=== PATIENT | female | born 1985 | race African-American/Black ===

== ENCOUNTER 2019-01-24 06:20 | Inpatient (IN) | payer OTHER ==
[2019-01-23 12:59] VITALS: BMI 35.5
[2019-01-24] MEDS ORDERED: GENTAMICIN SO4 80 MG/2 ML VIAL ONE (07:11)
[2019-01-24] MEDS ORDERED: BUPIVACAINE HCL/PF 0.5% (5 MG/ML) 30 ML VIAL IJ ONE ×2 (07:11→10:15)
[2019-01-24] MEDS ORDERED: THROMBIN (BOVINE) 5,000 UNIT VIAL TP ONE (07:12)
[2019-01-24] MEDS ORDERED: LIDOCAINE 1%-EPI 1:100,000 30 ML MDV IJ ONE ×2 (07:12→07:30)
[2019-01-24] MEDS ORDERED: DEXMEDETOMIDINE HCL 200 MCG/2 ML IVPB ONE (07:28)
[2019-01-24] MEDS ORDERED: ROCURONIUM BROMIDE 50 MG/5 ML SYRINGE ONE (07:32)
[2019-01-24] MEDS ORDERED: MIDAZOLAM HCL 2 MG/2 ML SINGLE DOSE VIAL ONE (07:32)
[2019-01-24] MEDS ORDERED: fentaNYL CITRATE 250 MCG/5 ML VIAL ONE ×2 (07:32→09:13)
[2019-01-24] MEDS ORDERED: BACITRACIN 15 GM TUBE TOPICAL OINTMENT ONE ×2 (07:36→10:37)
[2019-01-24] MEDS ORDERED: LIDOCAINE HCL 1% EPINEPHRINE 1:200,000 30 ML VIAL (PF) ONE (07:36)
[2019-01-24] MEDS ORDERED: LIDOCAINE HCL 1%, 10 MG/ML (20ML VIAL) ONE (07:38)
--- NOTE | 2019-01-24 07:49 | HP ---
History & Physical Update - History History: No Change - Physical Physical: No Change - Assessment Assessment: No Change - Plan Plan: No Change (no change since preop evaluation with Dr Sinclair on 01/17)
[2019-01-24] MEDS ORDERED: PROPOFOL 20 ML ONE ×3 (08:18)
[2019-01-24] MEDS ORDERED: ceFAZolin SODIUM 1 GM VIAL IVPB ONE (09:10)
[2019-01-24] MEDS ORDERED: VANCOMYCIN 1,000 MG VIAL (RESTRICTED TO ID ONLY) IVPB ONE (09:12)
[2019-01-24] MEDS ORDERED: LIDOCAINE 1%/EPI 1:100000 (50 ML MULTI DOSE VIAL) NR ONE (09:14)
[2019-01-24] MEDS ORDERED: HYDROmorphone HCl 2 MG/ML VIAL ONE (09:20)
[2019-01-24] MEDS ORDERED: KETAMINE HCL 200 MG/20 ML VIAL ONE (09:26)
[2019-01-24] MEDS ORDERED: HYDROGEN PEROXIDE 473 ML PO ONE (09:50)
[2019-01-24] MEDS ORDERED: BACITRACIN 50,000 UNITS VIAL NR ONE (09:50)
[2019-01-24] MEDS ORDERED: GENTAMICIN 80MG PREMIX BAG IVPB ONE (09:50)
[2019-01-24] MEDS ORDERED: BUPIVACAINE LIPOSOME/PF (EXPAREL) 266 MG/20 ML VIAL ONE (10:11)
[2019-01-24] MEDS ORDERED: BUPIVACAINE LIPOSOME/PF (EXPAREL) 266 MG/20 ML VIAL NR ONE (10:15)
[2019-01-24] MEDS ORDERED: NEOSTIGMINE METHYLSULFATE 0.5 MG/1 ML - 10 ML MDV ONE (10:16)
[2019-01-24] MEDS ORDERED: ONDANSETRON 4 MG/2 ML VIAL IVPUSH PRN ×3 (11:02→11:52)
--- NOTE | 2019-01-24 11:17 | OP ---
Operative Note - Note: Operative Date: 01/24/19 Pre-Operative Diagnosis: Chiari Malformation Operation: 1. Cranial tong application. 2. Microdissection. 3. Suboccipital decompression for Chiari malformation with C1 laminectomy. 4. Bilateral soft tissue advancement flaps (50cm2). 5. C1-2 posterior arthodesis. 6. Local autograft Findings: as dictated Post-Operative Diagnosis: Other (Chiari malformation with craniocervical junction instability) Surgeon: Cesar Noel Technology Applications Consultant: Jose Juan Sequeira Anesthesiologist/HELMINTHOLOGY TEACHER: Abdi Hammer Anesthesia: General, Local (exparel/.25%Marcaine 20cc injected at completion of site ) Specimens Removed: bone Estimated Blood Loss (mls): 10 (ml) Drains, Volume Out (mls): 350 (ml clear urine) Fluid Volume Replaced (mls): 1 (L LR) Operative Report Dictated: Yes
[2019-01-24] MEDS ORDERED: HYDROmorphone *PCA* 10MG/50ML DISP.SYRIN ONE (11:27)
[2019-01-24] MEDS ORDERED: HYDROmorphone *PCA* 10MG/50ML DISP.SYRIN PCA ONE (11:45)
[2019-01-24] MEDS ORDERED: HYDROmorphone *PCA* 10MG/50ML DISP.SYRIN PCA SCH (12:00)
--- NOTE | 2019-01-24 12:31 | HP ---
Admitting History and Physical - Admission History Source: Patient, Medical Record Limitations to Obtaining History: No Limitations - Past Medical History ...LMP: 01/20/19 - Past Surgical History Past Surgical History: Yes: None - Smoking History Smoking history: Never smoked - Alcohol/Substance Use Hx Alcohol Use: Yes (socially) <Karen March - Last Filed: 01/24/19 12:27> - Admission History of Present Illness: Pt is a 33 y/o f with no significant past medical history who presented to [facility] to undergo a craniotomy procedure. Pt endorses she began to experience weakness in her left arm as well as a shooting pain down her legs. Pt also endorses experiencing visual changes such as seeing spots., double vision. These symptoms commenced after a trip to [facility] and [facility] this past August. During this time period, pt also states that she has been suffering from a lack of sleep due to extreme discomfort when she is supine; endorses she feels a pressure like pain in her head when she coughs or sneezes. Pt was referred to Dr Noel due to her symptoms and was diagnosed with a Chiari 1 malformation found on MRI. Pt endorses ataxic gait, dizziness, and vision changes. Denies loss of bowel or bladder function, LOC, chest pain, or shortness of breath. PMH- As per HPI SocialHx: Consumes 3-4 drinks every other day. Smokes Marijuana socially. 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 (?), Other (ataxia / dizziness) ...: No - Past Surgical History Past Surgical History: Yes: None - Smoking History Smoking history: Never smoked - Alcohol/Substance Use Hx Alcohol Use: Yes History of Substance Use: reports: Marijuana - Social History Usual Living Arrangement: Yes: With Significant Other ADL: Independent History of Recent Travel: Yes <Bhavya Mejia I - Last Filed: 01/27/19 11:49> Home Medications <Karen March - Last Filed: 01/24/19 12:27> <Bhavya Mejia I - Last Filed: 01/27/19 11:49> - Allergies Allergies/Adverse Reactions: Allergies Allergy/AdvReac Type Severity Reaction Status Date / Time No Known Allergies Allergy Verified 01/24/19 07:07 - Home Medications Home Medications: Ambulatory Orders NK [No Known Home Medication] 01/23/19 Review of Systems - Review of Systems Constitutional: reports: No Symptoms Eyes: reports: No Symptoms HENT: reports: Other (Severe pain in lt roman catholic) Neck: reports: Decreased ROM Cardiovascular: reports: No Symptoms Respiratory: reports: No Symptoms Gastrointestinal: reports: No Symptoms Genitourinary: reports: No Symptoms Breasts: reports: No Symptoms Reported Musculoskeletal: reports: No Symptoms Neurological: reports: Headache Endocrine: reports: No Symptoms Hematology/Lymphatic: reports: No Symptoms Psychiatric: reports: No Symptoms <Karen March - Last Filed: 01/24/19 12:27> - Review of Systems Constitutional: reports: No Symptoms, Other (obesity) Eyes: reports: Double Vision, Floaters, Recent Change in Vision HENT: reports: Other Neck: reports: Decreased ROM Cardiovascular: reports: No Symptoms Respiratory: reports: No Symptoms Gastrointestinal: reports: No Symptoms Genitourinary: reports: No Symptoms Breasts: reports: No Symptoms Reported Musculoskeletal: reports: No Symptoms Integumentary: reports: No Symptoms Neurological: reports: Headache, Numbness, Parasthesia, Weakness Endocrine: reports: No Symptoms Hematology/Lymphatic: reports: No Symptoms Psychiatric: reports: No Symptoms <Bhavya Mejia I - Last Filed: 01/27/19 11:49> Physical Examination Vital Signs: Vital Signs Temperature 97.9 F 01/24/19 07:04 Pulse Rate 64 01/24/19 07:04 Respiratory Rate 20 01/24/19 07:04 Blood Pressure 143/74 01/24/19 07:04 O2 Sat by Pulse Oximetry (%) 100 01/24/19 07:03 <Karen March - Last Filed: 01/24/19 12:27> Vital Signs: Vital Signs Temperature 97.8 F 01/25/19 17:53 Pulse Rate 89 01/25/19 17:53 Respiratory Rate 18 01/25/19 17:53 Blood Pressure 137/59 L 01/25/19 17:53 O2 Sat by Pulse Oximetry (%) 98 01/25/19 15:45 Constitutional: Yes: Well Nourished, No Distress, Anxious, Obese Eyes: Yes: Conjunctiva Clear, EOM Intact HENT: Yes: Atraumatic, Normocephalic Neck: Yes: Supple, Trachea Midline Cardiovascular: Yes: Regular Rate and Rhythm Respiratory: Yes: Regular, CTA Bilaterally Gastrointestinal: Yes: Normal Bowel Sounds, Soft ...Rectal Exam: Yes: Deferred Renal/: Yes: WNL Breast(s): Yes: WNL Musculoskeletal: Yes: WNL Extremities: Yes: WNL Edema: No Peripheral Pulses WNL: Yes Integumentary: Yes: WNL Neurological: Yes: Ataxia, Paresthesia, Pre-Existing Deficit ...Motor Strength: WNL Psychiatric: Yes: WNL Labs: CBC, BMP 01/25/19 07:18 01/25/19 07:18 <Bhavya Mejia I - Last Filed: 01/27/19 11:49> Problem List - Problems (2) Double vision Code(s): H53.2 - DIPLOPIA (3) Obesity Code(s): E66.9 - OBESITY, UNSPECIFIED (4) Arnold-Chiari malformation Code(s): Q07.00 - ARNOLD-CHIARI SYNDROME WITHOUT SPINA BIFIDA OR HYDROCEPHALUS <Bhavya Mejia I - Last Filed: 01/27/19 11:49>
[2019-01-24] MEDS ORDERED: ACETAMINOPHEN 1000 MG/100 ML VIAL (NON FORMULARY) IVPB ONE ×2 (13:00→16:29)
[2019-01-24] MEDS ORDERED: ACETAMINOPHEN INJECTION 100 ML IVPB ONE (13:10)
[2019-01-24] MEDS: LACTATED RINGERS SOLUTION 1,000 ML IV SCH (14:30)
--- NOTE | 2019-01-24 16:04 | CONSULT ---
Consultation: REQUESTING PROVIDER: Dr Noel CONSULT REQUEST: We have been asked to medically evaluate this patient for ( Chiari 1 Malformation s/p Suboccipital craniotomy, c1 laminectomy). HISTORY OF PRESENT ILLNESS: Pt is a 33 y/o f with no significant past medical history who presented to [facility] to undergo a craniotomy procedure. Pt endorses she began to experience weakness in her left arm as well as a shooting pain down her legs. Pt also endorses experiencing visual changes such as seeing spots. These symptoms commenced after a trip to [facility] and [facility] this past August. During this time period, pt also states that she has been suffering from a lack of sleep due to extreme discomfort when she is supine; endorses she feels a pressure like pain in her head when she coughs or sneezes. Pt was referred to Dr Noel due to her symptoms and was diagnosed with a Chiari 1 malformation found on MRI. Pt endorses ataxic gait, dizziness, and vision changes. Denies loss of bowel or bladder function, LOC, chest pain, or shortness of breath. PMH- As per HPI SocialHx: Consumes 3-4 drinks every other day. Smokes Marijuana socially. Denies illicit drug use SurgHx- 2 C-Sections, Foot surgeries, Nerve Blocks lower back, Ear Surgery FH- Mother- HTN, DM, " Strokes" NKDA REVIEW OF SYSTEMS: CONSTITUTIONAL: Absent: fever, chills, diaphoresis, generalized weakness, malaise, loss of appetite, weight change HEENT: Absent: rhinorrhea, nasal congestion, throat pain, throat swelling, difficulty swallowing, mouth swelling, ear pain, eye pain, visual changes CARDIOVASCULAR: Absent: chest pain, syncope, palpitations, irregular heart rate, lightheadedness , peripheral edema RESPIRATORY: Absent: cough, shortness of breath, dyspnea with exertion, orthopnea, wheezing, stridor, hemoptysis GASTROINTESTINAL: Absent: abdominal pain, abdominal distension, nausea, vomiting, diarrhea, constipation, melena, hematochezia GENITOURINARY: Absent: dysuria, frequency, urgency, hesitancy, hematuria, flank pain, genital pain MUSCULOSKELETAL: Absent: myalgia, arthralgia, joint swelling, back pain, neck pain SKIN: Absent: rash, itching, pallor HEMATOLOGIC/IMMUNOLOGIC: Absent: easy bleeding, easy bruising, lymphadenopathy, frequent infections ENDOCRINE: Absent: unexplained weight gain, unexplained weight loss, heat intolerance, cold intolerance NEUROLOGIC: PRESENT headache, focal weakness or paresthesias, dizziness, unsteady gait PSYCHIATRIC: Absent: anxiety, depression, suicidal or homicidal ideation, hallucinations. PHYSICAL EXAMINATION Vital Signs - 24 hr 01/24/19 01/24/19 01/24/19 06:57 07:03 07:04 Temperature 97.9 F 97.9 F Pulse Rate 64 64 Respiratory 20 20 Rate Blood Pressure 143/74 143/74 O2 Sat by Pulse 100 Oximetry (%) 01/24/19 01/24/19 01/24/19 10:55 11:00 11:15 Temperature 97.5 F L Pulse Rate 91 H 94 H 94 H Respiratory 15 18 17 Rate Blood Pressure 121/62 116/58 L 115/60 O2 Sat by Pulse 98 99 99 Oximetry (%) 01/24/19 01/24/19 01/24/19 11:30 11:45 12:00 Temperature Pulse Rate 87 97 H 90 Respiratory 12 15 13 Rate Blood Pressure 112/66 116/63 103/60 O2 Sat by Pulse 99 98 99 Oximetry (%) 01/24/19 01/24/19 01/24/19 12:15 12:30 12:45 Temperature Pulse Rate 92 H 81 86 Respiratory 13 13 12 Rate Blood Pressure 110/58 L 105/41 L 113/44 L O2 Sat by Pulse 98 99 97 Oximetry (%) 01/24/19 01/24/19 01/24/19 13:00 13:15 14:30 Temperature 98.1 F 97.2 F L Pulse Rate 85 85 84 Respiratory 12 15 16 Rate Blood Pressure 111/56 L 112/60 110/60 O2 Sat by Pulse 100 98 98 Oximetry (%) 01/24/19 15:00 Temperature Pulse Rate 89 Respiratory 16 Rate Blood Pressure 125/65 O2 Sat by Pulse Oximetry (%) GENERAL: Moderate Distress HEAD: Surgical dressing occipital region, nonoozing. EYES: EOMI Sclera Clear EARS, NOSE, THROAT: MMM NECK: Supple LUNGS: CTAB HEART: RRR S1S2 ABDOMEN: Soft NDNT No HSM LOWER EXTREMITIES: No CCE NEUROLOGICAL: Strength 5/5 RUE, 2/5 LUE, 5/5 b/l lower extremities. PSYCHIATRIC: Cooperative. Good eye contact. Appropriate mood and affect. Laboratory Results - last 24 hr 01/24/19 01/24/19 01/24/19 06:41 06:41 08:50 Serum , Qual Negative Blood Type B POSITIVE B POSITIVE Antibody Screen Negative Active Medications Generic Name Dose Route Start Last Admin Trade Name Freq PRN Reason Stop Dose Admin Docusate Sodium 100 mg 01/24/19 14:00 Colace - PO TID [facility] Ferrous Sulfate 325 mg 01/25/19 08:00 Feosol - PO DAILY@0800 SANG Folic Acid 1 mg 01/25/19 10:00 Folic Acid - PO DAILY [facility] Heparin Sodium (Porcine) 5,000 unit 01/24/19 22:00 Heparin - SQ Q8H-IV SANG Hydromorphone HCl 10 mg 01/24/19 12:00 Hydromorphone 10 Mg/50 Ml-Ns AIR TOOL OPERATOR 01/25/19 11:[address] [facility] Protocol Cefazolin Sodium 1 gm/ 50 mls @ 100 mls/hr 01/24/19 16:30 Dextrose IVPB 01/25/19 16:[address] [facility] Lactated Ringer's 1,000 mls @ 75 mls/hr 01/24/19 12:00 01/24/19 14:30 Lactated Ringers Solution IV Not Given ASDIR [facility] Ondansetron HCl 4 mg 01/24/19 11:52 Zofran Injection IVPUSH Q4H PRN NAUSEA AND/OR VOMITING Ondansetron HCl 4 mg 01/24/19 11:52 Zofran Injection IVPUSH Q6H PRN NAUSEA AND/OR VOMITING ASSESSMENT/PLAN: Pt is a 33 y/o f with no significant past medical history who presented to [facility] to undergo a craniotomy procedure for a Chiari 1 malformation. #Neuro- Chiari 1 Malformation -s/p Suboccipital craniotomy, c1 lamiectomy -Neurosurgery on board- Dr Noel -Pain control with AIR TOOL OPERATOR -OOB, Incentive [place] -No drain per surgery -May begin Heparin in evening -CBC BMP Mg Phos in AM #FEN -LR@75cc -Monitor Electrolytes -Reg Diet #DVT ppx -HEPSQTID Dispo: We will continue to follow the patient. Thank you for this consultative opportunity. Visit type - Emergency Visit Emergency Visit: No - New Patient This patient is new to me today: Yes Date on this admission: 01/24/19 - Critical Care Critical Care patient: Yes Total Critical Care Time (in minutes): 35 Critical Care Statement: The care of this patient involved high complexity decision making to prevent further life threatening deterioration of the patient 's condition and/or to evaluate & treat vital organ system(s) failure or risk of failure.
[2019-01-24] MEDS ORDERED: CEFAZOLIN 1 GM in DEXTROSE 5%-WATER - 50 ML IVPB SCH (16:30)
[2019-01-24] MEDS: CEFAZOLIN 1 GM/D5W 1 GM/50 ML BAG IVPB SCH (17:13)
[2019-01-24] MEDS ORDERED: MELATONIN 5 MG TABLETS PO ONE ×2 (20:35→21:15)
[2019-01-24] MEDS: HEPARIN NA (PORCINE) 5,000 UNITS/ML 1ML VIAL SQ SCH (21:26)
[2019-01-24] MEDS: DOCUSATE SODIUM 100 MG CAPSULE (FP) PO SCH (21:26)
[2019-01-24] MEDS: CHLORHEXIDINE GLUCONATE 4% CLEANSER FOR DECOLONIZATION TP SCH (22:43)
[2019-01-24] MEDS: MUPIROCIN 2% TOPICAL OINTMENT FOR DECOLONIZATION NS SCH (22:43)
[2019-01-25] MEDS ORDERED: HYDROmorphone HCl 2 MG/ML VIAL IVPUSH ONE ×2 (00:56→01:55)
[2019-01-25] MEDS ORDERED: ACETAMINOPHEN 1000 MG/100 ML VIAL (NON FORMULARY) IVPB ONE (00:57)
[2019-01-25] MEDS ORDERED: ceFAZolin SODIUM 1 GM VIAL ONE (02:07)
[2019-01-25] MEDS ORDERED: DEXTROSE 5%-WATER - 50 ML IVPB ONE (02:07)
[2019-01-25] MEDS: CEFAZOLIN 1 GM in DEXTROSE 5%-WATER - 50 ML IVPB SCH ×2 (02:09→10:00)
[2019-01-25] MEDS: CEFAZOLIN 1 GM/D5W 1 GM/50 ML BAG IVPB SCH (03:02)
[2019-01-25] MEDS: DOCUSATE SODIUM 100 MG CAPSULE (FP) PO SCH ×3 (07:05→22:55)
[2019-01-25] MEDS: HEPARIN NA (PORCINE) 5,000 UNITS/ML 1ML VIAL SQ SCH ×3 (07:05→22:55)
[2019-01-25 07:45] LABS: HEMATOCRIT 33.4 % (32.4-45.2); HEMOGLOBIN 11.1 GM/dL (10.7-15.3); MCH 30.8 pg (25.7-33.7); MCHC 33.2 g/dl (32.0-36.0); MEAN CELL VOLUME 92.9 fl (80-96); PLATELET COUNT 289 K/MM3 (134-434); RBC 3.59 M/mm3 (3.60-5.2); RDW 13.2 % (11.6-15.6); WHITE BLOOD COUNT 16.5 K/mm3 (4.0-10.0)
[2019-01-25 08:07] LABS: INR 1.09 (0.83-1.09); PROTHROMBIN TIME (PATIENT) 12.9 SEC (9.7-13.0)
[2019-01-25 08:09] LABS: ACTIVATED PTT 29.1 SECONDS (25.2-36.5)
[2019-01-25 08:14] LABS: BLOOD UREA NITROGEN 9.6 mg/dL (7-18); CALCIUM 8.3 mg/dL (8.5-10.1); CREATININE 0.9 mg/dL (0.55-1.3); MAGNESIUM 1.9 mg/dL (1.8-2.4); POTASSIUM 3.7 mmol/L (3.5-5.1)
--- NOTE | 2019-01-25 09:51 | PN ---
Teaching Attending Note Name of Resident: Juan Dyson ATTENDING PHYSICIAN STATEMENT I saw and evaluated the patient. I reviewed the resident's note and discussed the case with the resident. I agree with the resident's findings and plan as documented. SUBJECTIVE: Patient seen and examined in the ICU. Awake and alert. Remains on SAFETY AIDE. Reports post-op pain. No CP or SOB. Intake & Output 01/22/19 01/23/19 01/24/19 01/25/19 23:59 23:59 23:59 23:59 Intake Total 2482.5 1025 Output Total 1310 2000 Balance 1172.5 -975 Weight 220 lb Last Vital Signs Temp Pulse Resp BP Pulse Ox 98.2 F 74 12 132/83 100 01/25/19 08:00 01/25/19 08:00 01/25/19 08:00 01/25/19 08:00 01/25/19 09:00 Active Medications Chlorhexidine Gluconate (Hibiclens For Decolonization -) 1 applic TP HS [facility] Last Admin: 01/24/19 22:43 Dose: 1 applic Docusate Sodium (Colace -) 100 mg PO TID [facility] Last Admin: 01/25/19 07:05 Dose: Not Given Ferrous Sulfate (Feosol -) 325 mg PO DAILY@0800 [facility] Folic Acid (Folic Acid -) 1 mg PO DAILY [facility] Heparin Sodium (Porcine) (Heparin -) 5,000 unit SQ TID [facility] Last Admin: 01/25/19 07:05 Dose: Not Given Hydromorphone HCl (Hydromorphone 10 Mg/50 Ml-Ns) 10 mg SAFETY AIDE SAFETY AIDE [facility]; Protocol Stop: 01/25/19 11:59 Last Admin: 01/24/19 22:41 Dose: 10 mg Lactated Ringer's (Lactated Ringers Solution) 1,000 mls @ 75 mls/hr IV ASDIR SANG Last Admin: 01/24/19 14:30 Dose: Not Given Cefazolin Sodium 1 gm/ (Dextrose) 50 mls @ 100 mls/hr IVPB Q8H [facility] Stop: 01/25/19 16:44 Last Admin: 01/25/19 02:09 Dose: 100 mls/hr Mupirocin (Bactroban Ointment (For Decolonization) -) 1 applic NS BID [facility] Stop: 01/29/19 21:59 Last Admin: 01/24/19 22:43 Dose: 1 applic Ondansetron HCl (Zofran Injection) 4 mg IVPUSH Q4H PRN PRN Reason: NAUSEA AND/OR VOMITING Last Admin: 01/24/19 17:14 Dose: 4 mg Ondansetron HCl (Zofran Injection) 4 mg IVPUSH Q6H PRN PRN Reason: NAUSEA AND/OR VOMITING i GENERAL: Awake and alert, uncomfortable due to pain HEAD: Surgical dressing occipital region EYES: EOMI Sclera Clear EARS, NOSE, THROAT: MMM NECK: Supple LUNGS: CTAB HEART: RRR S1S2 ABDOMEN: Soft NDNT No HSM LOWER EXTREMITIES: No CCE NEUROLOGICAL: Strength 5/5 RUE, 2/5 LUE, 5/5 b/l lower extremities. PSYCHIATRIC: Cooperative. Good eye contact. Appropriate mood and affect. Laboratory Results - last 24 hr 01/24/19 01/25/19 01/25/19 08:50 07:18 07:18 WBC 16.5 H RBC 3.59 L Hgb 11.1 Hct 33.4 MCV 92.9 MCH 30.8 MCHC 33.2 RDW 13.2 Plt Count 289 MPV 8.0 PT with INR INR PTT (Actin FS) Sodium 142 Potassium 3.7 Chloride 107 Carbon Dioxide 28 Anion Gap 7 L BUN 9.6 Creatinine 0.9 Est GFR (CKD-EPI)AfAm 98.06 Est GFR (CKD-EPI)NonAf 84.60 Random Glucose 95 Calcium 8.3 L Phosphorus 4.0 Magnesium 1.9 Blood Type B POSITIVE 01/25/19 07:18 WBC RBC Hgb Hct MCV MCH MCHC RDW Plt Count MPV PT with INR 12.90 INR 1.09 PTT (Actin FS) 29.1 Sodium Potassium Chloride Carbon Dioxide Anion Gap BUN Creatinine Est GFR (CKD-EPI)AfAm Est GFR (CKD-EPI)NonAf Random Glucose Calcium Phosphorus Magnesium Blood Type ASSESSMENT/PLAN: POD #1 Suboccipital craniotomy and C1 laminectomy due to a Chiari 1 malformation. PO pains meds VTE prophylaxis O2 as needed Incentive Spirometry PO as tolerated Surgical follow up Dr Hernandez
[2019-01-25] MEDS ORDERED: FOLIC ACID 1 MG TABLET (FP) PO SCH (10:00)
[2019-01-25] MEDS: MUPIROCIN 2% TOPICAL OINTMENT FOR DECOLONIZATION NS SCH ×2 (10:05→23:32)
[2019-01-25] MEDS: FERROUS SO4 325 MG TABLET (FP) PO SCH (10:05)
--- NOTE | 2019-01-25 10:54 | CONSULT ---
Consultation: REQUESTING PROVIDER: CONSULT REQUEST: We have been asked to medically evaluate this patient for ( specify). HISTORY OF PRESENT ILLNESS: REVIEW OF SYSTEMS: CONSTITUTIONAL: Absent: fever, chills, diaphoresis, generalized weakness, malaise, loss of appetite, weight change HEENT: Absent: rhinorrhea, nasal congestion, throat pain, throat swelling, difficulty swallowing, mouth swelling, ear pain, eye pain, visual changes CARDIOVASCULAR: Absent: chest pain, syncope, palpitations, irregular heart rate, lightheadedness , peripheral edema RESPIRATORY: Absent: cough, shortness of breath, dyspnea with exertion, orthopnea, wheezing, stridor, hemoptysis GASTROINTESTINAL: Absent: abdominal pain, abdominal distension, nausea, vomiting, diarrhea, constipation, melena, hematochezia GENITOURINARY: Absent: dysuria, frequency, urgency, hesitancy, hematuria, flank pain, genital pain MUSCULOSKELETAL: Absent: myalgia, arthralgia, joint swelling, back pain, neck pain SKIN: Absent: rash, itching, pallor HEMATOLOGIC/IMMUNOLOGIC: Absent: easy bleeding, easy bruising, lymphadenopathy, frequent infections ENDOCRINE: Absent: unexplained weight gain, unexplained weight loss, heat intolerance, cold intolerance NEUROLOGIC: Absent: headache, focal weakness or paresthesias, dizziness, unsteady gait, seizure, mental status changes, bladder or bowel incontinence PSYCHIATRIC: Absent: anxiety, depression, suicidal or homicidal ideation, hallucinations. PHYSICAL EXAMINATION Vital Signs - 24 hr 01/24/19 01/24/19 01/24/19 10:55 11:00 11:15 Temperature 97.5 F L Pulse Rate 91 H 94 H 94 H Respiratory 15 18 17 Rate Blood Pressure 121/62 116/58 L 115/60 O2 Sat by Pulse 98 99 99 Oximetry (%) 01/24/19 01/24/19 01/24/19 11:30 11:45 12:00 Temperature Pulse Rate 87 97 H 90 Respiratory 12 15 13 Rate Blood Pressure 112/66 116/63 103/60 O2 Sat by Pulse 99 98 99 Oximetry (%) 01/24/19 01/24/19 01/24/19 12:15 12:30 12:45 Temperature Pulse Rate 92 H 81 86 Respiratory 13 13 12 Rate Blood Pressure 110/58 L 105/41 L 113/44 L O2 Sat by Pulse 98 99 97 Oximetry (%) 01/24/19 01/24/1919 13:00 13:15 14:30 Temperature 98.1 F 97.2 F L Pulse Rate 85 85 90 Respiratory 12 14 17 Rate Blood Pressure 111/56 L 112/60 110/60 O2 Sat by Pulse 100 98 100 Oximetry (%) 01/24/19 01/24/19 01/24/19 15:00 15:45 16:00 Temperature Pulse Rate 89 89 87 Respiratory 16 15 14 Rate Blood Pressure 125/65 128/60 113/61 O2 Sat by Pulse 100 Oximetry (%) 01/24/19 01/24/19 01/24/19 18:00 20:00 21:00 Temperature 97.4 F L 97.8 F Pulse Rate 78 76 Respiratory 17 14 19 Rate Blood Pressure 133/75 129/72 O2 Sat by Pulse 100 100 Oximetry (%) 01/24/19 01/24/19 01/24/19 22:00 22:41 23:11 Temperature Pulse Rate 83 79 79 Respiratory 11 19 84 H Rate Blood Pressure 158/66 158/66 158/66 O2 Sat by Pulse 100 100 Oximetry (%) 01/25/19 01/25/19 01/25/19 00:00 00:41 02:00 Temperature 97.7 F Pulse Rate 71 67 82 Respiratory 12 10 16 Rate Blood Pressure 142/70 142/70 128/71 O2 Sat by Pulse 100 Oximetry (%) 01/25/19 01/25/19 01/25/19 02:41 03:45 04:00 Temperature Pulse Rate 83 68 83 Respiratory 15 11 18 Rate Blood Pressure 133/99 124/62 124/62 O2 Sat by Pulse 96 96 Oximetry (%) 01/25/19 01/25/19 01/25/19 04:41 06:00 06:41 Temperature 97.8 F Pulse Rate 68 80 76 Respiratory 11 17 15 Rate Blood Pressure 124/62 120/64 120/64 O2 Sat by Pulse 96 97 Oximetry (%) 01/25/19 01/25/19 01/25/19 07:45 08:00 09:00 Temperature 98.2 F Pulse Rate 74 74 Respiratory 12 12 Rate Blood Pressure 124/70 132/83 O2 Sat by Pulse 100 100 Oximetry (%) 01/25/19 10:00 Temperature 98.0 F Pulse Rate Respiratory Rate Blood Pressure 118/63 O2 Sat by Pulse Oximetry (%) GENERAL: Awake, alert, and fully oriented, in no acute distress. HEAD: Normal with no signs of trauma. EYES: Pupils equal, round and reactive to light, extraocular movements intact, sclera anicteric, conjunctiva clear. No lid lag. EARS, NOSE, THROAT: Ears normal, nares patent, oropharynx clear without exudates. Moist mucous membranes. NECK: Normal range of motion, supple without lymphadenopathy, JVD, or masses. LUNGS: Breath sounds equal, clear to auscultation bilaterally. No wheezes, and no crackles. No accessory muscle use. HEART: Regular rate and rhythm, normal S1 and S2 without murmur, rub or gallop. ABDOMEN: Soft, nontender, not distended, normoactive bowel sounds, no guarding, no rebound, no masses. No hepatomegaly or splenomegaly. MUSCULOSKELETAL: Normal range of motion at all joints. No bony deformities or tenderness. No CVA tenderness. UPPER EXTREMITIES: 2+ pulses, warm, well-perfused. No cyanosis. No clubbing. Cap refill <2 seconds. No peripheral edema. LOWER EXTREMITIES: 2+ pulses, warm, well-perfused. No calf tenderness. No peripheral edema. NEUROLOGICAL: Cranial nerves II-XII intact. Normal speech. Normal gait. PSYCHIATRIC: Cooperative. Good eye contact. Appropriate mood and affect. SKIN: Warm, dry, normal turgor, no rashes or lesions noted. Laboratory Results - last 24 hr 01/25/19 01/25/19 01/25/19 07:18 07:18 07:18 WBC 16.5 H RBC 3.59 L Hgb 11.1 Hct 33.4 MCV 92.9 MCH 30.8 MCHC 33.2 RDW 13.2 Plt Count 289 MPV 8.0 PT with INR 12.90 INR 1.09 PTT (Actin FS) 29.1 Sodium 142 Potassium 3.7 Chloride 107 Carbon Dioxide 28 Anion Gap 7 L BUN 9.6 Creatinine 0.9 Est GFR (CKD-EPI)AfAm 98.06 Est GFR (CKD-EPI)NonAf 84.60 Random Glucose 95 Calcium 8.3 L Phosphorus 4.0 Magnesium 1.9 Active Medications Generic Name Dose Route Start Last Admin Trade Name Freq PRN Reason Stop Dose Admin Chlorhexidine Gluconate 1 applic 01/24/19 22:00 01/24/19 22:43 Hibiclens For Decolonization - TP 1 applic HS SANG Administration Docusate Sodium 100 mg 01/24/19 14:00 01/25/19 07:05 Colace - PO Not Given TID SANG Ferrous Sulfate 325 mg 01/25/19 08:00 01/25/19 10:05 Feosol - PO 325 mg DAILY@0800 SANG Administration Folic Acid 1 mg 01/25/19 10:00 01/25/19 10:05 Folic Acid - PO 1 mg DAILY SANG Administration Heparin Sodium (Porcine) 5,000 unit 01/24/19 22:00 01/25/19 07:05 Heparin - SQ Not Given TID SANG Hydromorphone HCl 10 mg 01/24/19 12:00 01/24/19 22:41 Hydromorphone 10 Mg/50 Ml-Ns SIEBEL ARCHITECT 01/25/19 11:59 10 mg SIEBEL ARCHITECT SANG Administration Protocol Lactated Ringer's 1,000 mls @ 75 mls/hr 01/24/19 12:00 01/24/19 14:30 Lactated Ringers Solution IV Not Given ASDIR SANG Cefazolin Sodium 1 gm/ 50 mls @ 100 mls/hr 01/25/19 01:15 01/25/19 02:09 Dextrose IVPB 01/25/19 16:44 100 mls/hr Q8H SANG Administration Mupirocin 1 applic 01/24/19 22:00 01/25/19 10:05 Bactroban Ointment (For Decolonization) - NS 01/29/19 21:59 1 applic BID SANG Administration Ondansetron HCl 4 mg 01/24/19 11:52 01/24/19 17:14 Zofran Injection IVPUSH 4 mg Q4H PRN Administration NAUSEA AND/OR VOMITING Ondansetron HCl 4 mg 01/24/19 11:52 Zofran Injection IVPUSH Q6H PRN NAUSEA AND/OR VOMITING CBC, BMP 01/25/19 07:18 01/25/19 07:18 ASSESSMENT/PLAN: Dispo: We will continue to follow the patient. Thank you for this consultative opportunity. ATTENDING PHYSICIAN STATEMENT I saw and evaluated the patient. I reviewed the resident's note and discussed the case with the resident. I agree with the resident's findings and plan as documented. SUBJECTIVE: OBJECTIVE: ASSESSMENT AND PLAN:
--- NOTE | 2019-01-25 11:13 | PN ---
Physical Exam: SUBJECTIVE: Patient seen and examined at bed side POD#1 for Chiari 1 Malformation s/p Suboccipital craniotomy, c1 laminectomy on ANTIQUE AUTOMOBILES REPAIRER has iching this am and was giving Benadryl , keep asking for pain meds. vutals stable and no cp, sob complain of some pain in surgical area different that one before surgery. asking for vegi diet OBJECTIVE: Vital Signs Period Temp Pulse Resp BP Sys/Hassan Pulse Ox Last 24 Hr 97.2 F-98.2 F 67-97 10-84 103-158/41-99 96-100 GENERAL: AAOx3 in NAD , collar neck in place EYES: EOMI, Conjunctiva clear, sclera anicteric ENT: moist mucous membrane NECK: Supple, no JVD, collar neck in place LUNGS: CTA B/L, no crackles no wheezing no accessory muscle use. HEART: RRR, NSR, normal s1, s2, murmur no M/R/G ABDOMEN: Soft, ND, NT, +BS 4 Q, no CVA Tenderness LOWER EXTREMITIES: no edema, +2DP pulse, NEUROLOGICAL: No focal deficit. Normal speech. gait not observed. SKIN: Warm, dry, Laboratory Results - last 24 hr 01/25/19 01/25/19 01/25/19 07:18 07:18 07:18 WBC 16.5 H RBC 3.59 L Hgb 11.1 Hct 33.4 MCV 92.9 MCH 30.8 MCHC 33.2 RDW 13.2 Plt Count 289 MPV 8.0 PT with INR 12.90 INR 1.09 PTT (Actin FS) 29.1 Sodium 142 Potassium 3.7 Chloride 107 Carbon Dioxide 28 Anion Gap 7 L BUN 9.6 Creatinine 0.9 Est GFR (CKD-EPI)AfAm 98.06 Est GFR (CKD-EPI)NonAf 84.60 Random Glucose 95 Calcium 8.3 L Phosphorus 4.0 Magnesium 1.9 Active Medications Generic Name Dose Route Start Last Admin Trade Name Freq PRN Reason Stop Dose Admin Chlorhexidine Gluconate 1 applic 01/24/19 22:00 01/24/19 22:43 Hibiclens For Decolonization - TP 1 applic HS SANG Administration Docusate Sodium 100 mg 01/24/19 14:00 01/25/19 07:05 Colace - PO Not Given TID SANG Ferrous Sulfate 325 mg 01/25/19 08:00 01/25/19 10:05 Feosol - PO 325 mg DAILY@0800 SANG Administration Folic Acid 1 mg 01/25/19 10:00 01/25/19 10:05 Folic Acid - PO 1 mg DAILY SANG Administration Heparin Sodium (Porcine) 5,000 unit 01/24/19 22:00 01/25/19 07:05 Heparin - SQ Not Given TID SANG Hydromorphone HCl 10 mg 01/24/19 12:00 01/24/19 22:41 Hydromorphone 10 Mg/50 Ml-Ns ANTIQUE AUTOMOBILES REPAIRER 01/25/19 11:59 10 mg ANTIQUE AUTOMOBILES REPAIRER SANG Administration Protocol Lactated Ringer's 1,000 mls @ 75 mls/hr 01/24/19 12:00 01/24/19 14:30 Lactated Ringers Solution IV Not Given ASDIR SANG Cefazolin Sodium 1 gm/ 50 mls @ 100 mls/hr 01/25/19 01:15 01/25/19 02:09 Dextrose IVPB 01/25/19 16:44 100 mls/hr Q8H SANG Administration Mupirocin 1 applic 01/24/19 22:00 01/25/19 10:05 Bactroban Ointment (For Decolonization) - NS 01/29/19 21:59 1 applic BID SANG Administration Ondansetron HCl 4 mg 01/24/19 11:52 01/24/19 17:14 Zofran Injection IVPUSH 4 mg Q4H PRN Administration NAUSEA AND/OR VOMITING Ondansetron HCl 4 mg 01/24/19 11:52 Zofran Injection IVPUSH Q6H PRN NAUSEA AND/OR VOMITING CBC, BMP 01/25/19 07:18 01/25/19 07:18 ASSESSMENT/PLAN: Pt is a 33 y/o f with no significant past medical history who presented to [facility] to undergo a craniotomy procedure for a Chiari 1 malformation. #Neuro- Chiari 1 Malformation -s/p Suboccipital craniotomy, c1 lamiectomy -Neurosurgery on board- Dr Noel -Pain control with ANTIQUE AUTOMOBILES REPAIRER, will reach out to surgery for PO pain meds -OOB, Incentive Hkanh -No drain per surgery - Heparin SQ for DVTS proph -CBC BMP Mg Phos in AM - laxatives miralax and colace #FEN -LR@75cc -Monitor Electrolytes -Vegi Diet #DVT ppx -HEPSQTID can be monitored on the floor Visit type - Emergency Visit Emergency Visit: Yes ED Registration Date: 01/24/19 Care time: The patient presented to the Emergency Department on the above date and was hospitalized for further evaluation of their emergent condition. - New Patient This patient is new to me today: Yes Date on this admission: 01/25/19 - Critical Care Critical Care patient: Yes Total Critical Care Time (in minutes): 45 Critical Care Statement: The care of this patient involved high complexity decision making to prevent further life threatening deterioration of the patient 's condition and/or to evaluate & treat vital organ system(s) failure or risk of failure. ATTENDING PHYSICIAN STATEMENT I saw and evaluated the patient. I reviewed the resident's note and discussed the case with the resident. I agree with the resident's findings and plan as documented. SUBJECTIVE: OBJECTIVE: ASSESSMENT AND PLAN:
[2019-01-25] MEDS: diazePAM 5 MG TABLET PO PRN ×2 (15:55→22:55)
[2019-01-25] MEDS: oxyCODONE HCL 10 MG SUSTAINED ACTING TABLET PO PRN ×2 (15:55→19:14)
[2019-01-25] MEDS: LACTATED RINGERS SOLUTION 1,000 ML IV SCH (15:56)
--- NOTE | 2019-01-25 16:32 | PN ---
Progress Note (short form) - Note Progress Note: Anesthesia Post Op note Pt s/p GA for Chiari malformation repair Pt awake alert, Denies n/v, no urinary retention, no puritis Reports poor pain control on SALES REPRESENTATIVE RURAL POWER SALES REPRESENTATIVE RURAL POWER discontinued - d/w Dr. Noel VSS no apparent anesthesia complications Ashkan Chaney.
--- NOTE | 2019-01-25 19:20 | PN ---
Progress Note (short form) - Note Progress Note: patient seen and examined in ICU MAGNETO REPAIRER d/c'd more comfortable today but pain mamagement still uncontrolled partner at bedside Vital Signs Period Temp Pulse Resp BP Sys/Hassan Pulse Ox Last 24 Hr 97.7 F-98.2 F 67-89 10-99 118-158/59-99 96-100 Awake / alert O X3 firm neck brace in place lungs clear and and laterally abd soft non tender ext no calf tenderness Active Medications Acetaminophen (Ofirmev Injection -) 1,000 mg IVPB Q6H PRN PRN Reason: PAIN LEVEL 1-5 Chlorhexidine Gluconate (Hibiclens For Decolonization -) 1 applic TP HS [facility] Last Admin: 01/24/19 22:43 Dose: 1 applic Diazepam (Valium -) 5 mg PO Q6H PRN PRN Reason: PAIN LEVEL 1-5 Last Admin: 01/25/19 15:55 Dose: 5 mg Docusate Sodium (Colace -) 100 mg PO TID [facility] Last Admin: 01/25/19 15:23 Dose: 100 mg Ferrous Sulfate (Feosol -) 325 mg PO DAILY@0800 [facility] Last Admin: 01/25/19 10:05 Dose: 325 mg Folic Acid (Folic Acid -) 1 mg PO DAILY [facility] Last Admin: 01/25/19 10:05 Dose: 1 mg Heparin Sodium (Porcine) (Heparin -) 5,000 unit SQ TID [facility] Last Admin: 01/25/19 15:23 Dose: 5,000 unit Lactated Ringer's (Lactated Ringers Solution) 1,000 mls @ 75 mls/hr IV ASDIR [facility] Last Admin: 01/25/19 15:56 Dose: Not Given Ketorolac Tromethamine (Toradol Injection -) 30 mg IVPUSH Q8H-IV PRN PRN Reason: PAIN LEVEL 1-5 Stop: 01/30/19 14:59 Mupirocin (Bactroban Ointment (For Decolonization) -) 1 applic NS BID [facility] Stop: 01/29/19 21:59 Last Admin: 01/25/19 10:05 Dose: 1 applic Ondansetron HCl (Zofran Injection) 4 mg IVPUSH Q4H PRN PRN Reason: NAUSEA AND/OR VOMITING Last Admin: 01/24/19 17:14 Dose: 4 mg Ondansetron HCl (Zofran Injection) 4 mg IVPUSH Q6H PRN PRN Reason: NAUSEA AND/OR VOMITING Oxycodone HCl (Oxycontin -) 10 mg PO BID PRN PRN Reason: PAIN LEVEL 4 - 6 Last Admin: 01/25/19 19:14 Dose: 10 mg ASSESSMENT/PLAN: Pt is a 33 y/o f with no significant past medical history who presented to [facility] to undergo a craniotomy procedure for a Chiari 1 malformation. 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
[2019-01-25] MEDS: ACETAMINOPHEN 1000 MG/100 ML VIAL (NON FORMULARY) IVPB PRN (19:34)
[2019-01-25] MEDS: KETOROLAC TROMETHAMINE 30 MG/1 ML VIAL IVPUSH PRN (20:39)
[2019-01-25] MEDS: CHLORHEXIDINE GLUCONATE 4% CLEANSER FOR DECOLONIZATION TP SCH (23:33)
[2019-01-25] MEDS ORDERED: oxyCODONE HCL 5 MG TABLET PO PRN (23:52)
[2019-01-26] MEDS: oxyCODONE HCL 5 MG TABLET PO PRN ×4 (00:05→19:37)
[2019-01-26] MEDS: KETOROLAC TROMETHAMINE 30 MG/1 ML VIAL IVPUSH PRN ×2 (04:31→12:24)
[2019-01-26] MEDS: diazePAM 5 MG TABLET PO PRN ×4 (04:31→22:45)
[2019-01-26] MEDS: DOCUSATE SODIUM 100 MG CAPSULE (FP) PO SCH ×3 (07:02→21:00)
[2019-01-26] MEDS: HEPARIN NA (PORCINE) 5,000 UNITS/ML 1ML VIAL SQ SCH ×3 (07:02→21:04)
[2019-01-26] MEDS ORDERED: ONDANSETRON 4 MG/2 ML VIAL IVPUSH PRN (08:04)
[2019-01-26 08:09] LABS: BASO % 0.4 % (0-2.0); HEMATOCRIT 35.1 % (32.4-45.2); HEMOGLOBIN 11.6 GM/dL (10.7-15.3); LYMPH % 23.9 % (8-40); MCH 30.7 pg (25.7-33.7); MEAN CELL VOLUME 92.8 fl (80-96); MEAN PLT VOLUME 8.3 fl (7.5-11.1); MONO % 10.4 % (3.8-10.2); NEUT % 65.3 % (42.8-82.8); PLATELET COUNT 280 K/MM3 (134-434); RBC 3.78 M/mm3 (3.60-5.2); RDW 13.2 % (11.6-15.6); WHITE BLOOD COUNT 12.3 K/mm3 (4.0-10.0)
[2019-01-26 08:40] LABS: ALBUMIN 3.4 g/dl (3.4-5.0); BILIRUBIN,TOTAL 0.6 mg/dL (0.2-1); BLOOD UREA NITROGEN 6.2 mg/dL (7-18); CREATININE 0.9 mg/dL (0.55-1.3); TOT PROT 7.7 g/dl (6.4-8.2)
[2019-01-26] MEDS: ACETAMINOPHEN 1000 MG/100 ML VIAL (NON FORMULARY) IVPB PRN ×3 (09:01→23:01)
[2019-01-26] MEDS: oxyCODONE HCL 10 MG SUSTAINED ACTING TABLET PO PRN (09:02)
[2019-01-26] MEDS: oxyCODONE HCL 10 MG SUSTAINED ACTING TABLET PO SCH ×2 (11:15→21:00)
[2019-01-26] MEDS: FOLIC ACID 1 MG TABLET (FP) PO SCH (11:20)
[2019-01-26] MEDS: LACTATED RINGERS SOLUTION 1,000 ML IV SCH (11:39)
[2019-01-26] MEDS: FERROUS SO4 325 MG TABLET (FP) PO SCH (11:41)
--- NOTE | 2019-01-26 18:45 | PN ---
Progress Note (short form) - Note Progress Note: patient seen and examined on Med-surg dan feeling better but remains with significant discomfort although looks like she is able to move around better Vital Signs Period Temp Pulse Resp BP Sys/Hassan Pulse Ox Last 24 Hr 97.8 F-98.2 F 64-84 16-20 132-159/73-103 99 Awake / alert O X3 firm neck brace in place lungs clear abd soft non tender ext no calf tenderness Active Medications Acetaminophen (Ofirmev Injection -) 1,000 mg IVPB Q6H PRN PRN Reason: PAIN LEVEL 1-5 Last Admin: 01/26/19 16:42 Dose: 1,000 mg Diazepam (Valium -) 5 mg PO Q6H PRN PRN Reason: PAIN LEVEL 1-5 Last Admin: 01/26/19 17:32 Dose: 5 mg Docusate Sodium (Colace -) 100 mg PO TID [facility] Last Admin: 01/26/19 13:32 Dose: 100 mg Ferrous Sulfate (Feosol -) 325 mg PO DAILY@0800 [facility] Folic Acid (Folic Acid -) 1 mg PO DAILY [facility] Last Admin: 01/26/19 11:20 Dose: 1 mg Heparin Sodium (Porcine) (Heparin -) 5,000 unit SQ TID [facility] Last Admin: 01/26/19 13:37 Dose: Not Given Lactated Ringer's (Lactated Ringers Solution) 1,000 mls @ 75 mls/hr IV ASDIR [facility] Last Admin: 01/26/19 11:39 Dose: Not Given Ketorolac Tromethamine (Toradol Injection -) 30 mg IVPUSH Q8H-IV PRN PRN Reason: PAIN LEVEL 1-5 Stop: 01/30/19 14:59 Last Admin: 01/26/19 12:24 Dose: 30 mg Ondansetron HCl (Zofran Injection) 4 mg IVPUSH Q4H PRN PRN Reason: NAUSEA AND/OR VOMITING Ondansetron HCl (Zofran Injection) 4 mg IVPUSH Q6H PRN PRN Reason: NAUSEA AND/OR VOMITING Oxycodone HCl (Roxicodone -) 5 mg PO Q6H PRN PRN Reason: PAIN LEVEL 1-5 Oxycodone HCl (Roxicodone -) 10 mg PO Q6H PRN PRN Reason: PAIN LEVEL 6-10 Last Admin: 01/26/19 13:31 Dose: 10 mg Oxycodone HCl (Oxycontin -) 10 mg PO BID@0900,2100 [facility] Last Admin: 01/26/19 11:15 Dose: Not Given ASSESSMENT/PLAN: Pt is a 33 y/o f with no significant past medical history who presented to [facility] to undergo a craniotomy procedure for a Chiari 1 malformation. #Neuro- Chiari 1 Malformation -s/p Suboccipital craniotomy, c1 lamiectomy -Pain control with SUPERVISOR SEWING ROOM now discontinued --on PO pain meds -c/o neck spasm -- will inc valium at hs to 10mg -OOB, BRP, -Incentive Spirometry # Constipation - laxatives miralax and colace Problem List - Problems (3) Double vision Code(s): H53.2 - DIPLOPIA (4) Obesity Code(s): E66.9 - OBESITY, UNSPECIFIED (5) Arnold-Chiari malformation Code(s): Q07.00 - ARNOLD-CHIARI SYNDROME WITHOUT SPINA BIFIDA OR HYDROCEPHALUS
[2019-01-26] MEDS ORDERED: PT OWN MED DRAWER 7, Y5N ONE (20:53)
[2019-01-26] MEDS: POLYETHYLENE GLYCOL 3350 119 GM BTL PO SCH (21:01)
[2019-01-27] MEDS: ONDANSETRON 4 MG/2 ML VIAL IVPUSH PRN ×2 (00:32→09:25)
[2019-01-27] MEDS: KETOROLAC TROMETHAMINE 30 MG/1 ML VIAL IVPUSH PRN ×2 (01:50→09:25)
[2019-01-27] MEDS: oxyCODONE HCL 5 MG TABLET PO PRN ×2 (03:33→12:00)
[2019-01-27] MEDS: DOCUSATE SODIUM 100 MG CAPSULE (FP) PO SCH ×3 (05:51→21:59)
[2019-01-27] MEDS: diazePAM 5 MG TABLET PO PRN ×2 (05:51→12:00)
[2019-01-27] MEDS: HEPARIN NA (PORCINE) 5,000 UNITS/ML 1ML VIAL SQ SCH ×3 (05:52→21:58)
--- NOTE | 2019-01-27 08:11 | PN ---
Progress Note (short form) - Note Progress Note: POD #3 Suboccipital craniotomy, c1 laminectomy. Patient seen and examined at bedside states pain is improved and mostly controlled on PO meds but she is still having lots of pain during sleeping hours at night. She also states that she gets a headache at times associated with the pain. She is ambulating without assistance, voiding and tolerating a regular diet. She denies any CP, SOB, nausea, fever or chills. Vital Signs Temp 97.2 F L 01/27/19 14:00 Pulse 99 H 01/27/19 14:00 Resp 18 01/27/19 14:00 BP 114/85 01/27/19 14:00 Pulse Ox 99 01/26/19 21:00 Intake & Output 01/26/19 01/27/19 01/27/19 23:59 11:59 23:59 Intake Total 1550 300 Balance 1550 300 Intake: IV 750 Lactated Ringers Solution 750 1,000 ml @ 75 mls/hr IV ASDIR SANG Rx#:[id number] IVPB 200 100 Oral 600 200 Other: Voiding Method Toilet Toilet # Unmeasured Voids Carrillo 2 Void 4 3 Bowel Movement No No No CBC, BMP 01/26/19 07:20 01/26/19 07:20 PE: A&Ox3, NAD Unlabored resp on RA Incision c/d/i with no evidence of tracking erythema, edema or active d/c. moving all extremities without limitation B/L LE compartments soft, supple and non-tender with + pedal pulses Problem List - Problems (1) Arnold-Chiari malformation, type I Assessment/Plan: Patient doing well. I spoke with Dr Mejia and we will adjust PO meds and refer to Dr Scherer to follow up as outpatient. -Oxycodone 20mg QID -Valium 10mg Q6h -OOB as tolerated with c-collar -d/c planning for home today -f/u with Dr Scherer as outpatient. Evaluation and plan discussed with Dr Cross and Dr Moore
[2019-01-27] MEDS: oxyCODONE HCL 10 MG SUSTAINED ACTING TABLET PO SCH (09:08)
[2019-01-27] MEDS: FOLIC ACID 1 MG TABLET (FP) PO SCH (09:08)
[2019-01-27] MEDS: FERROUS SO4 325 MG TABLET (FP) PO SCH (09:08)
[2019-01-27] MEDS: LACTATED RINGERS SOLUTION 1,000 ML IV SCH (11:54)
[2019-01-27] MEDS: POLYETHYLENE GLYCOL 3350 119 GM BTL PO SCH ×2 (12:07→21:59)
[2019-01-27] MEDS ORDERED: PT OWN MED DRAWER 7, Y5N ONE (16:40)
[2019-01-27] MEDS: oxyCODONE HCL 5 MG TABLET PO SCH ×2 (18:11→23:02)
[2019-01-27] MEDS: ACETAMINOPHEN 325 MG TABLET (FP) PO SCH ×2 (18:16→22:00)
--- NOTE | 2019-01-27 18:19 | PN ---
Progress Note (short form) - Note Progress Note: patient seen and examined med/surgicalward LUMBER CHECKER d/c'd more comfortable today but pain mamagement still uncontrolled partner at bedside Vital Signs Period Temp Pulse Resp BP Sys/Hassan Pulse Ox Last 24 Hr 97.7 F-98.2 F 67-89 10-99 118-158/59-99 96-100 Awake / alert O X3 firm neck brace in place lungs clear and and laterally abd soft non tender ext no calf tenderness CBC, BMP 01/26/19 07:20 01/26/19 07:20 Active Medications Acetaminophen (Ofirmev Injection -) 1,000 mg IVPB Q6H PRN PRN Reason: PAIN LEVEL 1-5 Chlorhexidine Gluconate (Hibiclens For Decolonization -) 1 applic TP HS [facility] Last Admin: 01/24/19 22:43 Dose: 1 applic Diazepam (Valium -) 5 mg PO Q6H PRN PRN Reason: PAIN LEVEL 1-5 Last Admin: 01/25/19 15:55 Dose: 5 mg Docusate Sodium (Colace -) 100 mg PO TID [facility] [place] Last Admin: 01/25/19 15:23 Dose: 100 mg Ferrous Sulfate (Feosol -) 325 mg PO DAILY@0800 [facility] [place] Last Admin: 01/25/19 10:05 Dose: 325 mg Folic Acid (Folic Acid -) 1 mg PO DAILY [facility] [place] Last Admin: 01/25/19 10:05 Dose: 1 mg Heparin Sodium (Porcine) (Heparin -) 5,000 unit SQ TID [facility] [place] Last Admin: 01/25/19 15:23 Dose: 5,000 unit Lactated Ringer's (Lactated Ringers Solution) 1,000 mls @ 75 mls/hr IV ASDIR [facility] [place] Last Admin: 01/25/19 15:56 Dose: Not Given Ketorolac Tromethamine (Toradol Injection -) 30 mg IVPUSH Q8H-IV PRN PRN Reason: PAIN LEVEL 1-5 Stop: 01/30/19 14:59 Mupirocin (Bactroban Ointment (For Decolonization) -) 1 applic NS BID [facility] [place] Stop: 01/29/19 21:59 Last Admin: 01/25/19 10:05 Dose: 1 applic Ondansetron HCl (Zofran Injection) 4 mg IVPUSH Q4H PRN PRN Reason: NAUSEA AND/OR VOMITING Last Admin: 01/24/19 17:14 Dose: 4 mg Ondansetron HCl (Zofran Injection) 4 mg IVPUSH Q6H PRN PRN Reason: NAUSEA AND/OR VOMITING Oxycodone HCl (Oxycontin -) 10 mg PO BID PRN PRN Reason: PAIN LEVEL 4 - 6 Last Admin: 01/25/19 19:14 Dose: 10 mg ASSESSMENT/PLAN: Pt is a 33 y/o f with no significant past medical history who presented to [facility] to undergo a craniotomy procedure for a Chiari 1 malformation. 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
[2019-01-27] MEDS: diazePAM 5 MG TABLET PO SCH (19:47)
[2019-01-28] MEDS: diazePAM 5 MG TABLET PO SCH ×2 (01:04→09:24)
[2019-01-28] MEDS: HEPARIN NA (PORCINE) 5,000 UNITS/ML 1ML VIAL SQ SCH (06:05)
[2019-01-28] MEDS: ACETAMINOPHEN 325 MG TABLET (FP) PO SCH ×2 (06:06→09:23)
[2019-01-28] MEDS: DOCUSATE SODIUM 100 MG CAPSULE (FP) PO SCH (06:06)
[2019-01-28] MEDS: oxyCODONE HCL 5 MG TABLET PO SCH (06:07)
--- NOTE | 2019-01-28 08:40 | PN ---
Progress Note (short form) - Note Progress Note: POD #4 Suboccipital craniotomy, C1 laminectomy. Patient seen and examined at bedside states pain is improved and she slept through the night for the first time last night with the new pain plan we put in place. She is happy and relieved. She is still c/o constipation. She is ambulating without assistance, voiding and tolerating a regular diet. She denies any CP, SOB, nausea, H/A, blurred vision, fever or chills. Vital Signs Temp 98.4 F 01/28/19 06:00 Pulse 81 01/28/19 06:00 Resp 18 01/28/19 06:00 BP 115/79 01/28/19 06:00 Pulse Ox 99 01/27/19 09:00 Intake & Output 01/27/19 01/27/19 01/28/19 11:59 23:59 11:59 Intake Total 300 Balance 300 Intake: IVPB 100 Oral 200 Other: Voiding Method Toilet Toilet Toilet # Unmeasured Voids Void 4 2 Bowel Movement No No No CBC, BMP 01/26/19 07:20 01/26/19 07:20 PE: A&Ox3, NAD Unlabored resp on RA Incision c/d/i with no evidence of tracking erythema, edema or active d/c. moving all extremities without limitation B/L LE compartments soft, supple and non-tender with + pedal pulses Problem List - Problems (1) Arnold-Chiari malformation, type I Assessment/Plan: Patient doing well and pain controlled with new pain plan -enema this morning -OOB as tolerated with c-collar -d/c planning for home today -f/u with Dr Scherer as outpatient. Evaluation and plan discussed with Dr Cross and Dr Moore
[2019-01-28] MEDS: FOLIC ACID 1 MG TABLET (FP) PO SCH (09:23)
[2019-01-28] MEDS: POLYETHYLENE GLYCOL 3350 119 GM BTL PO SCH (09:24)
[2019-01-28] MEDS: FERROUS SO4 325 MG TABLET (FP) PO SCH (09:24)
[2019-01-28 11:01] VITALS: BP 135/64; PULSE 91; TEMP 99
--- NOTE | 2019-01-31 12:21 | SURG ---
Surgery Front Office Spec Note Front Office Spec: Jose Juan Sequeira PA-C (Suzy) Date of Service: 01/24/19 Diagnosis: Chiari Malformation Procedure: Operation: 1. Cranial tong application. 2. Microdissection. 3. Suboccipital decompression for Chiari malformation with C1 laminectomy. 4. Bilateral soft tissue advancement flaps (50cm2). 5. C1-2 posterior arthodesis. 6. Local autograft I was present for the entirety of the operative procedure. For further detail, please refer to operative report. Visit type - Case Type Case Type: Scheduled - Emergency Emergency Visit: No - New patient This patient is new to me today: Yes Date on this admission: 01/31/19 - Critical Care Critical Care patient: No
== END 2019-01-28 11:51 | disposition home or self-care (01) | DRG 27 ==
LOC: JSAMEDAYSX 06:20 → JICU 14:14 → J8W 01-25 22:24
PROVIDERS: ADMIT Neurological Surgery; ATTEND Neurological Surgery
PROC: 0RG107J Fusion of Cervical Vertebral Joint with Autologous Tissue Substitute, Posterior Approach, Anterior Column, Open Approach (ICD-10-PCS; 2019-01-24)
PROC: 0JX50ZZ Transfer Left Neck Subcutaneous Tissue and Fascia, Open Approach (ICD-10-PCS; 2019-01-24)
PROC: 0JX Subcutaneous Tissue and Fascia, Transfer (ICD-10-PCS; 2019-01-24)
PROC: 00NC0ZZ Release Cerebellum, Open Approach (ICD-10-PCS; principal; 2019-01-24 08:00)
DX: G93.5 Compression of brain (principal); H53.2 Diplopia; E66.9 Obesity, unspecified; Z68.35 Body mass index [BMI] 35.0-35.9, adult; K59.00 Constipation, unspecified
CPT/HCPCS: 36415; 72125-TC; 80048; 80053; 83735; 84100; 84703; 85025; 85027; 85610; 85730; 86850; 86900; 86901; 94760; 97116-GP; 97161-GP; J0131; J1644

== ENCOUNTER 2019-04-27 15:21 | Emergency (ER) | payer OTHER ==
[2019-04-27 15:37] VITALS: PULSE 69; BMI 35.5
--- NOTE | 2019-04-27 15:50 | PDOC ---
History of Present Illness - General Chief Complaint: Urinary Problem Stated Complaint: R/O UTI Time Seen by Provider: 04/27/19 15:49 History Source: Patient Exam Limitations: No Limitations - History of Present Illness Initial Comments: 04/27/19 15:49 HPI: 33yo F PMH Budd Chiarai malformation s/p craniotomy, presenting with LLQ abdominal pain for 2 days. Patient reports sharp, downward radiating LLQ pain that she has never felt before. Pain has been increasing in frequency and now is in her left CVA region as well. This morning patient noted vaginal bleeding while she went to the restroom. Same-sex partner, reported monogamy, Hx abnormal PAP with culpo and subsequent normal PAPs, October 2018 small cyst noted on TVUS, LMP: 04/11/19. No history of kidney stones. Endorses chills, nausea, no vomiting, normal BMs. Denies dysuria or frequency, but endorses dark, cloudy urine. Patient has history of yeast infections, self-medicates with a tampon soaked in tea tree oils - reports she has done this often and has never had an issue with it. Has OBGYN appointment on Sunday. Denies fevers, chest pain, SOB, numbness, tingling, weakness, incontinence. All: NKDA Meds: Per chart PMH: As above PSH: 2 C-Sections, foot surgeries, nerve blocks lower back, ear surgery SHx: Consumes 3-4 drinks every other day. Smokes Marijuana socially. Denies other illicits FHx: Mother - HTN, DM, " Strokes" Past History - Travel Traveled outside of the country in the last 30 days: No Close contact w/someone who was outside of country & ill: No - Past Medical History Allergies/Adverse Reactions: Allergies Allergy/AdvReac Type Severity Reaction Status Date / Time No Known Allergies Allergy Verified 04/27/19 15:36 Home Medications: Ambulatory Orders NK [No Known Home Medication] 04/27/19 Anemia: No Asthma: No Cancer: No Cardiac Disorders: No CVA: No COPD: No CHF: No Dementia: No Diabetes: No GI Disorders: No Disorders: No HTN: No Hypercholesterolemia: No Liver Disease: No Seizures: No Thyroid Disease: No - Surgical History Neurologic Surgery: (pain injections) - Psycho Social/Smoking Cessation Hx Smoking History: Never smoked Hx Alcohol Use: Yes Substance Use Type: Alcohol Review of Systems - Review of Systems Able to Perform ROS?: Yes Is the patient limited Welsh proficient: Yes Constitutional: No: Chills, Diaphoresis, Fever, Weakness HEENTM: No: Recent change in vision, Nose Congestion, Throat Pain Respiratory: No: Cough, Shortness of Breath Cardiac (ROS): No: Chest Pain, Irregular Heart Rate, Palpitations, Syncope, Chest Tightness ABD/GI: Yes: Nausea. No: Blood Streaked Bowels, Constipated, Diarrhea, Poor Appetite, Poor Fluid Intake, Rectal Bleeding, Vomiting, Tarry Stools : Yes: Hematuria. No: Burning, Dysuria, Incontinence Musculoskeletal: Yes: Back Pain (left sided). No: Muscle Pain, Muscle Weakness Integumentary: No: Bruising, Pallor, Pruritus, Rash Neurological: No: Headache, Numbness, Tingling, Weakness Psychiatric: No: Stressors, Change in Appetite Endocrine: No: Increased Thirst, Increased Urine, Change in Weight Hematologic/Lymphatic: No: Anemia, Blood Clots, Easy Bleeding All Other Systems: Reviewed and Negative *Physical Exam - Vital Signs Last Vital Signs Temp Pulse Resp BP Pulse Ox 97.9 F 69 18 127/79 99 04/27/19 15:33 04/27/19 15:33 04/27/19 15:33 04/27/19 15:33 04/27/19 15:33 - Physical Exam 04/27/19 16:58 Vitals reviewed, AFVSS GEN: Well appearing, appears stated age, NAD, comfortable. AAOx3. HEENT: NCAT, EOMI, PERRL. Sclera anicteric, noninjected. No facial asymmetry. Moist mucous membranes. Normal voice. Trachea midline. CV: RRR, S1/S2, no murmurs / rubs / gallops appreciated. LUNG: CTAB, normal work of breathing. No wheezes, rales, rhonchi. No cough. Speaking full sentences. GI: Soft, tender suprapubically, non-distended, +guarding, no rebound. No masses. +CVAT on left. EXTREMITIES: 2+ distal pulses. No LE edema. No obvious deformities of all extremities. SKIN: Warm, dry, no rashes appreciated, non-jaundiced. PSYCH: Normal mood and affect. Cooperative and appropriate. NEURO: CN grossly intact. Moving all extremities well. Normal strength and sensation grossly. SSE: Normal external genitalia, normal rugao, normal cervix with +some blood in the vaginal vault from closed cervical os BME: +Tender left adnexa, no CMT ED Treatment Course - LABORATORY CBC & Chemistry Diagram: 04/27/19 17:04 04/27/19 17:04 Medical Decision Making - Medical Decision Making 04/27/19 16:30 33yo F PMH Budd Chiarai malformation s/p craniotomy, presenting with LLQ abdominal pain for 2 days. History notable for progression to CVA tenderness, cloudy urine, hx of cyst, sharp quality. Exam notable for stable vitals, no fever, suprapubic tenderness, vaginal bleeding and L adnexal tenderness. DDX: UTI / pyelo, ureterolithiasis, ruptured ovarian cyst, torsion, TOA. - CBC, CMP - UA, UCx, UPreg - 1g Ofirmev - 1L IVF - Zofran 04/27/19 16:53 - Renal US with difficult to assess R kidney, no clear signs of hydro, difficult pelvic anatomy - TVUS - r/o torsion - Morphine 4mg 04/27/19 18:52 - CBC, CMP unremarkable - negative - UA with 2+ blood, no UTI 04/27/19 22:23 - CT without intra-abdominal pathology, no stone - Patient with normal vitals, normal exam, complaining of pain and saying she will yell if she doesn't get Dilaudid while laying relaxed on her phone, stable for discharge Dispo: Home Discharge - Discharge Information Problems reviewed: Yes Clinical Impression/Diagnosis: Abdominal pain Qualifiers: Abdominal location: lower abdomen, unspecified Qualified Code(s): R10.30 - Lower abdominal pain, unspecified Condition: Improved Disposition: HOME - Admission No - Follow up/Referral - Patient Discharge Instructions Patient Printed Discharge Instructions: DI for Abdominal Pain-Adult Additional Instructions: You were seen in the ED for abdominal pain. Your workup was negative. Please continue to take over the counter pain medication as needed for your pain. Follow up with your primary care doctor in the next 2- 3days if your pain does not improve. Keep your Sunday QUALITY TECH appointment as scheduled. Return to the nearest ED for any new or concerning symptoms. - Post Discharge Activity Work/Back to School Note: Back to Work
[2019-04-27] MEDS ORDERED: ONDANSETRON *ODT* 4 MG TABLET SL ONE (16:18)
[2019-04-27] MEDS ORDERED: SODIUM CHLORIDE 1,000 ML IV STA (16:21)
[2019-04-27] MEDS ORDERED: ACETAMINOPHEN 1000 MG/100 ML VIAL (NON FORMULARY) IVPB ONE (16:22)
--- NOTE | 2019-04-27 16:30 | PDOC ---
Documentation entered by Leandro Stone SCRIBE, acting as scribe for Carole Urbina MD. Carole Urbina MD: This documentation has been prepared by the Chase corrigan Daniel, SCRIBE, under my direction and personally reviewed by me in its entirety. I confirm that the documentation accurately reflects all work, treatment, procedures, and medical decision making performed by me. Attending Attestation - Resident Resident Name: Adryan Greenwood - ED Attending Attestation I have performed the following: I have examined & evaluated the patient, The case was reviewed & discussed with the resident, I agree w/resident's findings & plan, Exceptions are as noted - HPI HPI: 04/27/19 16:21 33 yo F with h/o ovarian cyst, here with c/o llq pain now flank pain started 3 days ago. intermittent pain knife like, sharp. no mod factors except worse with walking. does not like to take pain medication. denies dysuria, but did have hematuria. no f/c nausea, no vomiting. no other complaints. LMp 04/11/19 04/27/19 16:57 - Physicial Exam PE: 04/27/19 16:25 awake alert lungs clear bilat heart rrrn o mrg abd soft llq suprapubic ttp. no rebound. no guarding. no cva tenderness. alert oriented x 3. pelvic exam with bleeding from cervical os . left adnexal ttp. no cmt. 04/27/19 16:56 - Medical Decision Making 04/27/19 16:29 33 yo F h/o ovarian cyst her with llq pain flank pain. hematuria. differential ruptured ovarian cyst, diverticultiis renal colic, pyelo uti. toa. plan pelvic exam. focusd ED renal us. possible ct. 04/27/19 16:57 pt with focused ED renal us. no hydro noted. bladder nondistended.
[2019-04-27] MEDS ORDERED: ONDANSETRON *ODT* 4 MG TABLET ONE (16:35)
[2019-04-27] MEDS ORDERED: ACETAMINOPHEN INJECTION 100 ML IVPB ONE (16:36)
[2019-04-27] MEDS ORDERED: ONDANSETRON 4 MG/2 ML VIAL IVPUSH ONE (16:50)
[2019-04-27] MEDS ORDERED: morphine CARPU-JECT 4 MG/1 ML DISP.SYRIN IVPUSH ONE (16:50)
[2019-04-27] MEDS ORDERED: morphine SULFATE 4 MG/ML VIAL ONE (16:56)
[2019-04-27] MEDS ORDERED: ONDANSETRON 4 MG/2 ML VIAL ONE (16:57)
[2019-04-27 17:25] LABS: BASO % 0.3 % (0-2.0); EOS % 0.9 % (0-4.5); HEMATOCRIT 39.9 % (32.4-45.2); HEMOGLOBIN 12.9 GM/dL (10.7-15.3); MCHC 32.5 g/dl (32.0-36.0); MEAN CELL VOLUME 92.3 fl (80-96); MEAN PLT VOLUME 8.7 fl (7.5-11.1); MONO % 9.9 % (3.8-10.2); NEUT % 44.9 % (42.8-82.8); PLATELET COUNT 323 K/MM3 (134-434); RBC 4.32 M/mm3 (3.60-5.2); RDW 13.7 % (11.6-15.6); WHITE BLOOD COUNT 8.3 K/mm3 (4.0-10.0)
[2019-04-27 17:29] LABS: EPI CELLS 6.7 /HPF (0-5/HPF); HYALINE CASTS 0 /lpf (0-8); URINE APPEARANCE CLEAR; URINE BACTERIA 102.2 /hpf (NEGATIVE); URINE BILIRUBIN NEGATIVE (NEGATIVE); URINE COLOR YELLOW; URINE GLUCOSE (UA) NEGATIVE (NEGATIVE); URINE KETONE NEGATIVE (NEGATIVE); URINE LEUK ESTERASE NEGATIVE (NEGATIVE); URINE NITRITE NEGATIVE (NEGATIVE); URINE PROTEIN NEGATIVE (NEGATIVE); URINE RBC 1 /hpf (0-4); URINE UROBILINOGEN 0.2 mg/dL (0.2-1.0); URINE WBC 1 /hpf (0-5)
[2019-04-27 17:34] LABS: ALBUMIN 3.7 g/dl (3.4-5.0); BILIRUBIN,TOTAL 0.2 mg/dL (0.2-1); BLOOD UREA NITROGEN 17.6 mg/dL (7-18); CALCIUM 8.7 mg/dL (8.5-10.1); CREATININE 0.9 mg/dL (0.55-1.3); POTASSIUM 3.9 mmol/L (3.5-5.1); TOT PROT 8.4 g/dl (6.4-8.2)
[2019-04-27] MEDS ORDERED: HYDROmorphone HCL CARPU-JECT 2 MG/1 ML DISP.SYRIN IVPUSH ONE (18:12)
[2019-04-27] MEDS ORDERED: HYDROmorphone HCl 2 MG/ML VIAL ONE (18:58)
[2019-04-27 19:17] VITALS: BP 104/53; TEMP 97.6
--- NOTE | 2019-04-27 21:18 | PDOC ---
*Physical Exam - Vital Signs Last Vital Signs Temp Pulse Resp BP Pulse Ox 97.6 F 69 18 104/53 L 97 04/27/19 19:05 04/27/19 19:05 04/27/19 19:05 04/27/19 19:05 04/27/19 19:05 ED Treatment Course - LABORATORY CBC & Chemistry Diagram: 04/27/19 17:04 04/27/19 17:04 - ADDITIONAL ORDERS Additional order review: Laboratory Results 04/27/19 04/27/19 04/27/19 17:04 17:04 17:04 Sodium 138 Potassium 3.9 Chloride 108 H Carbon Dioxide 26 Anion Gap 4 L BUN 17.6 Creatinine 0.9 Est GFR (CKD-EPI)AfAm 98.06 Est GFR (CKD-EPI)NonAf 84.60 Random Glucose 79 Calcium 8.7 Total Bilirubin 0.2 AST 16 ALT 27 Alkaline Phosphatase 77 Total Protein 8.4 H Albumin 3.7 Urine Color Yellow Urine Appearance Clear Urine pH 5.0 Ur Specific Streeter 1.025 Urine Protein Negative Urine Glucose (UA) Negative Urine Ketones Negative Urine Blood 2+ H Urine Nitrite Negative Urine Bilirubin Negative Urine Urobilinogen 0.2 Ur Leukocyte Esterase Negative Urine WBC (Auto) 1 Urine RBC (Auto) 1 Urine Casts (Auto) 0 U Epithel Cells (Auto) 6.7 Urine Bacteria (Auto) 102.2 Urine HCG, Qual Negative 04/27/19 17:04 RBC 4.32 MCV 92.3 MCHC 32.5 RDW 13.7 MPV 8.7 Neutrophils % 44.9 D Lymphocytes % 44.0 H D Monocytes % 9.9 Eosinophils % 0.9 D Basophils % 0.3 - Medications Given in the ED: ED Medications Discontinued Medications Generic Name Dose Route Start Last Admin Trade Name Freq PRN Reason Stop Dose Admin Acetaminophen 1,000 mg 04/27/19 16:22 04/27/19 16:35 Ofirmev Injection - IVPB 04/27/19 16:23 1,000 mg ONCE ONE Administration Hydromorphone HCl 1 mg 04/27/19 18:12 04/27/19 19:05 Dilaudid Injection - IVPUSH 04/27/19 18:13 1 mg ONCE ONE Administration Sodium Chloride 1,000 mls @ 1,000 mls/hr 04/27/19 16:21 04/27/19 16:25 Normal Saline - IV 04/27/19 17:20 1,000 mls/hr ASDIR STA Administration Morphine Sulfate 4 mg 04/27/19 16:50 04/27/19 17:20 Morphine Injection - IVPUSH 04/27/19 16:51 4 mg ONCE ONE Administration Ondansetron HCl 4 mg 04/27/19 16:18 04/27/19 16:51 Zofran Odt - SL 04/27/19 16:19 Not Given ONCE ONE Ondansetron HCl 4 mg 04/27/19 16:50 04/27/19 17:15 Zofran Injection IVPUSH 04/27/19 16:51 4 mg NOW ONE Administration Medical Decision Making - Medical Decision Making 04/27/19 21:17 Patient Name: TOMASA MERINO THIS IS A PRELIMINARY REPORT FROM [facility] ATTENDANT DATE OF SERVICE: 2019-04-27 18:15:58 IMAGES: 39 EXAM: US PELVIC COMPLETE TRANSVAGINAL US DUPLEX PELVIS . REASON FOR EXAM: Evaluate torsion COMPARISON: None FINDINGS: The uterus is normal in echotexture and without discrete fibroids or mass. The uterus measures 7.8 x 5.0 x 6.5 cm. The endometrial stripe is normal for age at 6 mm. There is no free fluid or suspicious adnexal mass. The ovaries are sonographically unremarkable with tiny follicles present. The right ovary measure 3.4 x 2.0 x 2.7 cm and the left ovary measures 3.0 x 1.5 x 1.8 cm Bilateral ovarian arterial and venous vascular doppler flow with normal spectral waveforms. IMPRESSION: No free fluid or suspicious pelvic mass. No evidence of ovarian torsion. 04/27/19 22:[address] read for the past 3 hours. Pt was reassigned to 3 different radiologists. Ought to be read soon. 04/27/19 22:22 Patient Name: TOMASA MERINO THIS IS A PRELIMINARY REPORT FROM [facility] ATTENDANT DATE OF SERVICE: 2019-04-27 19:44:06 IMAGES: [id number] EXAM: CT ABDOMEN AND PELVIS WITHOUT CONTRAST CLINICAL HISTORY: 33-year-old female, stone COMPARISON: No available comparison. Radiation Dose: Based on a 32 cm phantom, the estimated radiation dose CTDIvol mGy for each series in this exam is 12.2. The estimated cumulative dose (DLP mGy-cm) is 601.9. FINDINGS: Limited evaluation of solid organs and vasculature without IV contrast. Medical Devices: None Lower thorax: Normal. Liver and biliary tree: Normal Gallbladder: Unremarkable Spleen: Normal Pancreas: Normal Adrenal glands: Normal Kidneys and ureters: No hydronephrosis or urolithiasis. 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 No urolithiasis. Urinary Bladder: Not fully distended which limits evaluation; no gross abnormality. Gastrointestinal tract: No bowel wall thickening or evidence of obstruction. Normal appendix Peritoneal cavity: No free fluid. Reproductive Organs: Retroflexed uterus Vasculature: Limited evaluation of the vasculature without IV contrast. Lymph nodes: No significant lymphadenopathy. Abdominal wall: Normal Musculoskeletal: No acute fracture. IMPRESSION: Limited evaluation of solid organs and vasculature without IV contrast. No evidence of acute infectious or inflammatory process in the abdomen or pelvis. Discharge - Discharge Information Problems reviewed: Yes Clinical Impression/Diagnosis: Abdominal pain Qualifiers: Abdominal location: lower abdomen, unspecified Qualified Code(s): R10.30 - Lower abdominal pain, unspecified Condition: Improved Disposition: HOME - Follow up/Referral Referrals: Heri Sinclair [Primary Care Provider] - - Patient Discharge Instructions Patient Printed Discharge Instructions: DI for Abdominal Pain-Adult Additional Instructions: You were seen in the ED for abdominal pain. Your workup was negative. Please continue to take over the counter pain medication as needed for your pain. Follow up with your primary care doctor in the next 2- 3days if your pain does not improve. Keep your Sunday [employer] appointment as scheduled. Return to the nearest ED for any new or concerning symptoms. - Post Discharge Activity Work/Back to School Note: Back to Work
== END 2019-04-27 22:32 | disposition home or self-care (01) ==
LOC: JER 15:21
PROC: 3E0337Z Introduction of Electrolytic and Water Balance Substance into Peripheral Vein, Percutaneous Approach (ICD-10-PCS; principal; 2019-04-27)
PROC: 3E033NZ Introduction of Analgesics, Hypnotics, Sedatives into Peripheral Vein, Percutaneous Approach (ICD-10-PCS; 2019-04-27)
PROC: 3E033NZ Introduction of Analgesics, Hypnotics, Sedatives into Peripheral Vein, Percutaneous Approach (ICD-10-PCS; 2019-04-27)
PROC: 3E033NZ Introduction of Analgesics, Hypnotics, Sedatives into Peripheral Vein, Percutaneous Approach (ICD-10-PCS; 2019-04-27)
PROC: 3E033GC Introduction of Other Therapeutic Substance into Peripheral Vein, Percutaneous Approach (ICD-10-PCS; 2019-04-27)
DX: R10.30 Lower abdominal pain, unspecified (principal); G93.5 Compression of brain; Z87.42 Personal history of other diseases of the female genital tract
CPT/HCPCS: 36415; 74176-TC; 76775; 76830-TC; 80053; 81003; 84703; 85025; 87086; 99283-25; J0131; J7030